=== PATIENT | male | born 1970 | race Caucasian/White ===

== ENCOUNTER 2019-12-24 20:37 | Emergency (ER) | payer OTHER, SELFPAY ==
--- NOTE | 2019-12-24 20:39 | ECG_ITS ---
Measurements Intervals [place] Rate: 78 P: 52 W[place]: 190 QRS: -44 QRSD: 96 T: 54 QT: 370 QTc: 422 Interpretive Statements SINUS RHYTHM LEFT AXIS DEVIATION MINIMAL Q WAVES- LATERAL LEADS BASELINE WANDER- II, III, AVR, AVL, AVF BORDERLINE ECG Electronically Signed On 12-24-2019 21:16:30 [employer] by Natalio Benz D.O.
[2019-12-24 21:04] VITALS: BP 118/75; PULSE 76; RESP 16; TEMP 36.4; O2SAT 98
[2019-12-24 21:20] LABS: Basophils Percent Auto 0.5 % (0.2-1.2); Eosinophils Absolute Auto 0.2 K/mm3 (0-0.3); Eosinophils Percent Auto 3.2 % (0-4.4); Hematocrit 43.5 % (42.0-52.0); Hemoglobin 14.7 g/dL (14.0-18.0); Immature Granulocyte Absolute 0.01 K/mm3 (0.00-0.031); Immature Granulocyte Percent A 0.2 % (0-0.5); Lymphocytes Absolute Auto 1.84 K/mm3 (0.9-3.2); Lymphocytes Percent Auto 29.4 % (18.3-44.2); Mean Corpuscular HGB Conc 33.8 g/dl (32-36); Mean Corpuscular Hemoglobin 29.6 pg (26-34); Mean Corpuscular Volume 87.5 fl (80-100); Mean Platelet Volume 10.1 fl (7.4-10.4); Monocytes Absolute Auto 0.5 K/mm3 (0.1-0.6); Monocytes Percent Auto 7.2 % (2.6-8.5); Neutrophils Absolute Auto 3.7 K/mm3 (1.3-6.7); Neutrophils Percent Auto 59.5 % (45.5-73.1); Platelet Count Result 187 k/mm3 (150-375); Red Blood Count 4.97 M/mm3 (4.6-6.20); Red Cell Distribution Width 12.7 % (11.5-14.5); White Blood Count 6.3 K/mm3 (4.5-10.0)
[2019-12-24 21:29] LABS: Prothrombin Time 13.2 Seconds (11.1-14.7)
[2019-12-24 21:30] LABS: Partial Thromboplastin Time 30.4 SECONDS (22.3-36.8)
[2019-12-24 21:39] LABS: Blood Urea Nitrogen 15 mg/dL (9-20); Calcium 8.7 mg/dL (8.4-10.2); Carbon Dioxide 23 mmol/L (22-30); Chloride 103 mmol/L (98-107); Estimated CRCL calculation 90 ml/min; Estimated Glomerular Filt Rate > 60; Glucose 109 mg/dL (75-110); Potassium 3.8 mmol/L (3.4-5.0); Sodium 138 mmol/L (137-145)
[2019-12-24] MEDS: ASPIRIN 81 MG CHEWABLE TABLET 324 MG PO (21:41)
--- NOTE | 2019-12-24 21:55 | ED.GENADULT ---
HPI - General Adult General Chief complaint: Unspecified Stated complaint: EKG BAD? Time Seen by Provider: 12/24/19 21:45 Source: patient and RN notes reviewed Mode of arrival: ambulatory Limitations: no limitations History of Present Illness HPI narrative: Pt is a 49 y/o male with a Hx of panic attacks, who presents to the ED with c/o abnormal EKG. Pt denies any symptoms was just testing his friend laboratory monitor on some hand held device or gwyn on his friends phone. Denies cp, sob, n/v, abd pain or diaphoresis. He notes that he hasn't had any CP or SOB recently. Pt states that he used his friend's [employer] mobile heart monitor last night, and notes that his EKG appeared abnormal. He states that his friend's heel coverer machine operator called her earlier today and advised her that the EKG was concerning. Pt notes that he has had anxiety and intermittent panic attacks throughout the day today due to him stressing over the abnormal EKG. He denies any PMHx of HTN, HLD, DM, or OH. complaint: Abnormal EKG Onset (ago): day(s) (1) Associated symptoms: other (anxiety; panic attacks) Related Data Allergies Allergy/AdvReac Type Severity Reaction Status Date / Time No Known Drug Allergies Allergy Verified 11/03/11 10:25 Review of Systems Review of Systems: All systems reviewed & are unremarkable except as noted in HPI and below Cardiovascular: Cardiovascular: Denies chest pain Respiratory: Respiratory: Denies dyspnea Psychiatric: Psychiatric: Reports anxiety and Reports panic attacks [facility] Past Medical History Medical History Upper respiratory infection Surgical History Surgical History No significant past surgical history Social History Social History Smoking status: Never smoker Gender identity (if verbalized by the patient): Male Exam Const: General: cooperative, healthy appearing, comfortable, no acute distress, well developed, alert and awake; No confusion Orientation/consciousness: oriented to person, oriented to place, oriented to time, patient oriented x3 and No confusion Limitations: no limitations HENMT: Head: normal to inspection, normocephalic and atraumatic Chest: Chest palpation & inspection: normal inspection of the chest Resp: Effort & Inspection: normal respiratory effort, able to speak in complete sentences, no respiratory distress and not tachypneic Auscultation: clear to auscultation bilaterally, no crackles, no rales, no rhonchi and no wheezes Cardio: Rate: regular rate Rhythm: regular rhythm GI: Inspection: normal to inspection GI Palp: No abdominal tenderness, Yes Soft to palpation, No Tenderness to palpation present (GI), No Guarding due to palpation present (GI), No Rigid due to palpation and No Rebound tenderness present Auscultation: normal bowel sounds Skin: General skin exam: normal color, no rashes or lesions noted, elasticity normal and turgor normal Neuro: General: oriented to person, oriented to place, oriented to time, patient oriented x3, tone normal, moves all extremities, Normal light touch and pain sensation, no meningeal signs, no focal motor deficits, CN's II-XI intact bilaterally and No confusion Cranial nerves: Yes Equal, round and reactive pupils present Speech: No Abnormal speech present Sensory Exam: No Sensory deficit (Neuro) Extrem: General: normal to inspection, full ROM and capillary refill normal Psych: Appearance: grossly normal and well kempt Mental Status: mental status grossly normal Speech and movement: Normal speech and movement present Affect: normal affect Attitude: cooperative Thought process: Normal thought process present Thought content: Yes Normal thought content present Insight: Good insight present (Psych) Judgement: Good judgement present (Psych) Course Course Emergency Course: NO SYMPTOMS DURING HIS ER STAY. Gabrielle
[2019-12-24 22:05] LABS: Troponin I < 0.012 ng/mL (0.000-0.034)
[2019-12-24 23:05] VITALS: BP 128/97; PULSE 70; RESP 15; O2SAT 98
[2019-12-25 00:43] LABS: Troponin I < 0.012 ng/mL (0.000-0.034)
[2019-12-25 00:46] VITALS: BP 124/88; PULSE 56; RESP 15; O2SAT 98
== END 2019-12-25 00:48 | disposition home or self-care (01) ==
PROVIDERS: Emergency Provider Emergency Medicine; PCP Family Medicine
DX: R94.31 Abnormal electrocardiogram [ECG] [EKG] (principal)
CPT/HCPCS: 36415; 80048; 84484; 85025; 85610; 85730; 93005; 99284; A9270